=== PATIENT | female | born 1965 ===

== ENCOUNTER → 2017-06-05 | Outpatient (CLI) | payer OTHER, MEDICAID | LOC: FIMAGING 12:37 | PROVIDERS: ATTEND Family Medicine | DX: Z12.31 Encounter for screening mammogram for malignant neoplasm of breast (principal); Z80.3 Family history of malignant neoplasm of breast | CPT/HCPCS: G0202 ==

== ENCOUNTER → 2018-06-26 | Outpatient (CLI) | payer OTHER | LOC: FIMAGING 14:41 | PROVIDERS: ATTEND Family Medicine | DX: Z12.31 Encounter for screening mammogram for malignant neoplasm of breast (principal); Z80.3 Family history of malignant neoplasm of breast ==